=== PATIENT | male | born 1990 | race Hispanic/Latino ===

== ENCOUNTER 2018-01-07 17:56 | Emergency (ER) | payer BC ==
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
== END 2018-01-07 19:57 | disposition home or self-care (01) ==
LOC: ER 17:56
DX: M54.9 Dorsalgia, unspecified (principal); V89.2XXA Person injured in unspecified motor-vehicle accident, traffic, initial encounter; Y93.89 Activity, other specified; Y92.89 Other specified places as the place of occurrence of the external cause; Y99.9 Unspecified external cause status
CPT/HCPCS: 99284